=== PATIENT | female | born 1935 | race Caucasian/White ===

== ENCOUNTER 2019-02-03 08:25 | Inpatient (IN) ==
[2019-02-03] MEDS ORDERED: ZOFRAN IV ONE (08:59)
[2019-02-03] MEDS ORDERED: MORPHINE IV ONE (08:59)
[2019-02-03 09:12] LABS: BASO# 0.04 X1000 (0.0-0.2); BASO% 0.6 % (0.0-0.8); EOS# 0.07 X1000 (0.0-0.7); HEMATOCRIT 38.7 % (37.0-47.0); HEMOGLOBIN 13.1 g/dL (12.0-16.0); IMM GRAN# 0.02 X1000 (0.0-0.04); IMM GRAN% 0.3 % (0.0-0.5); LYMPH# 0.83 X1000 (1.2-3.4); LYMPH% 12.2 % (20.5-51.1); MCH 28.4 PG (27-31); MCHC 33.9 g/dL (33-37); MCV 83.9 FL (81-99); MONO# 0.73 X1000 (0.11-0.59); MONO% 10.7 % (1.7-9.3); MPV 11.6 FL (7.4-10.4); NEUT# 5.11 X1000 (1.4-6.5); NEUT% 75.2 % (42.2-75.2); PLT 224 X1000 (130-400); RBC 4.61 XMIL (4.2-5.4); RDW 14.1 % (11.5-14.5)
--- NOTE | 2019-02-03 09:14 | PROVIDER DOCUMENTATION ---
HPI-Abdominal Pain/GI Problem - General Chief Complaint: Abdominal Pain Stated Complaint: SOB,ABD PAIN Time Seen by Provider: 02/03/19 08:49 Source: patient, family Allergies/Adverse Reactions: Patient Allergies Allergy/AdvReac Type Severity Reaction Status Date / Time No Known Allergies Allergy Verified 02/03/19 09:02 Home Medications: Home Medication List Medication Instructions Recorded Confirmed Last Taken Type Chlorthalidone 25 mg PO DAILY 02/03/19 02/03/19 Unknown History Citalopram [Celexa] 10 mg PO DAILY 02/03/19 02/03/19 Unknown History Levothyroxine [Synthroid] 25 microgm PO DAILY 02/03/19 02/03/19 Unknown History Metformin E.r. [Glucophage Xr] 500 mg PO DAILY 02/03/19 02/03/19 Unknown History - History of Present Illness-ABD Nature of Presenting Problems: Presents to the with complaints of lower suprapubic abd pain that has been going on for about a week. She states that this has been getting progressively worse and has been causing SOB. She denies any dysuria, hematuria, fevers, chills or diarrhea. She states her last BM was this morning and she didnt have to strain hard and felt there was no constipation. She states this has never happened to her before. She has not tried anything at home. She tried to go to her PCP this morning but they were booked up and couldnt take her so she came here. Review of Systems - Adult - REVIEW OF SYSTEMS - ADULT Constitutional: reports: see HPI Eyes: reports: no symptoms reported Ears, Nose, Mouth & Throat: reports: no symptoms reported Cardiovascular: reports: no symptoms reported Respiratory: reports: no symptoms reported Gastrointestinal: reports: abdominal pain. denies: constipation, diarrhea, nausea, rectal bleeding, vomiting Genitourinary: reports: no symptoms reported Musculoskeletal: reports: no symptoms reported Integumentary: reports: no symptoms reported Neurological: reports: no symptoms reported Psychiatric: reports: no symptoms reported Endocrine: reports: no symptoms reported Hematologic/Lymphatic: reports: no symptoms reported Allergic/Immunologic: reports: no symptoms reported All Other Systems: Reviewed and Negative Past History - Adult - PAST MEDICAL HISTORY-ADULT Review of Records: reports: Old Records Reviewed Physical Exam-General - CONSTITUTIONAL General Appearance: alert, mild distress (uncomfortable appearing) - EYES Eyes: PERRL/EOMI - HEAD, EARS, NOSE, MOUTH & THROAT HENMT: normocephalic/atraumatic - NECK Neck: supple, normal inspection - RESPIRATORY Respiratory: chest non-tender, lungs clear, normal breath sounds, no respiratory distress, no accessory muscle use - CARDIOVASCULAR Cardiovascular: normal peripheral pulses, regular rate, rhythm, no murmur - GASTROINTESTINAL (ABDOMEN) Abdominal Exam: normal bowel sounds, soft, tenderness (lower abd pain) - MUSCULOSKELETAL Back Exam: normal inspection Extremity: non-tender, normal gait, normal inspection - SKIN Integumentary: normal color, warm/dry - NEUROLOGIC Neurologic: grossly normal - PSYCHIATRIC Psych/Mental Status: normal mood/affect, oriented x 3 Progress - PLAN OF CARE/RESULTS Progress/Plan/Lab Results: Vital Signs - 8 hr 02/03/19 08:30 Temperature 98.1 F Pulse Rate 71 Respiratory Rate 20 Blood Pressure 129/71 O2 Sat by Pulse Oximetry 98 Orders Category Date Time Status CHEST-PORTABLE [RAD] Stat Exams 02/03/19 08:[address] ABD/PELVIS W/IV CONT ONLY [CT] Stat Exams 02/03/19 08:57 Ordered CBC WITH ELECTRONIC DIFF [HEME] Stat Lab 02/03/19 09:02 Ordered COMPREHENSIVE METABOLIC PANEL [CHEM] Stat Lab 02/03/19 09:02 Ordered LIPASE [CHEM] Stat Lab 02/03/19 09:02 Ordered URINALYSIS W/POSS RFLX CULT [URINALYSIS] Stat Lab 02/03/19 08:57 Uncollected Morphine Med 02/03/19 08:59 Discontinued 4 mg IV NOW ONE Ondansetron [Zofran] Med 02/03/19 08:59 Discontinued 4 mg IV NOW ONE EKG [EKG] Stat Ther 02/03/19 08:38 Ordered Patient with concerning CT for mets and cancer. Discussed results with patient. She was very tearful and shocked. Offered administration manager services but explained that without biopsy nothing is known for sure and she needs further testing. Spoke to Dr Soto who stated that he would like to see patient in the ED prior to admitting as he felt that at this time admission is not necessary. Came to ED to see patient and feels like her primary cause for her abdominal pain is due to her diverticulitis and will treat her for this as well as try to obtain a biopsy. I feel diverticulitis is less likely the cause of her issue at this time as her WBC is normal, no blood in stool, afebrile, no diarrhea and no fevers. He accepted the patient for admission and will place all orders. Patient still pain free. Result Diagrams: 02/03/19 09:01 02/03/19 09:01 - EKG 1 Time of EKG reading by physician:: 08:37 EKG Read and Signed by:: Katie Barry EKG Interpretation (*Must complete 3 of following elements*): Abnormal Rate: 76 Rhythm: NSR [place]: normal QRS: normal ST Wave: non-specific ST changes - XRAY 1 XRAY Study: Chest (EXAM: CHEST-PORTABLE 02/03/2019 HISTORY: SOB TECHNIQUE: AP portable chest at 0917 COMMENT: There is an old fracture of the left humerus. The inspiration is less optimal than on 03/01/2017. There is some minimal atelectasis in the left costophrenic angle region. Otherwise lungs appear to be clear and unchanged since the previous study. The heart size and primary vascularity are within normal limits. IMPRESSION: Minimal left lower lobe atelectasis. Electronically signed by Reji Neri 02/03/2019 9:39 AM) - CT/MRI 1 CT Study: Abdomen (EXAM: CT ABD/PELVIS W/IV CONT ONLY 02/03/2019 HISTORY: lower abd pain x 1 week TECHNIQUE: This exam was performed using automated exposure control, adjustment of mA or kV according to patient size, and/or use of iterative reconstruction technique. COMMENT: There are no previous studies available for comparison. There is some dependent atelectasis in both lower lobes. There are calcifications in the abdominal aorta. The mesenteric and renal arteries are patent. There is dilatation of the biliary system in the left hepatic lobe and there are multiple low density and heterogeneously enhancing masses throughout the liver. There is what appears to be a cyst in the inferior portion of the right lobe. The common bile duct is somewhat distended measuring up to 8.9 mm. There has been cholecystectomy. The distal portion of the common duct is more normal in caliber measuring less than 5 mm. The pancreatic duct is slightly prominent measuring over 3 mm distally. There is a mass in the tail of the pancreas which is heterogeneous in appearance and abuts the hilus of the spleen, the aorta and encases the celiac artery. There is no evidence of abutment of the superior mesenteric artery although the splenic artery and vein are encased in the mass. This mass measures at least 5.4 cm in AP dimension. There are mesenteric masses as well with one on the left abutting a small bowel loop on image 63 measuring 13 mm in diameter and one in the central mesentery on image 90 measuring 2.2 cm in diameter. There are variceal collaterals seen anteriorly and around the stomach most likely as a result of obstruction of the splenic vein due to the mass. There is a moderate amount of stool in the colon. There is some fullness of the collecting systems particularly the right collecting system in the kidneys. There is a somewhat diminished area of enhancement in the mid anterior right kidney of uncertain significance. This is associated with some degree of perinephric fluid. Pelvis: There is free fluid in the cul-de-sac. There is mucosal thickening present in the sigmoid colon as well as multiple diverticula. The urinary bladder is not distended. There is a pessary in the vaginal vault. There is a right hip prosthesis and left hip nail which produces beam hardening artifact partially obscuring the lower pelvis. There are degenerative changes in the lumbar spine. IMPRESSION: 1. Mass in the tail of the pancreas with metastatic lesions in the liver. 2. Mesenteric masses as described above. 3. Varices. 4. Ascites, possibly malignant. 5. The possibility of primary or secondary malignancy in the sigmoid colon cannot be ex cluded. More likely there is a mild degree of sigmoid diverticulitis.) - CONSULTS/PCP/HOSPITALIST Notification #1 *Consult/PCP/Hospitalist*: Dr Soto Time Discussed: 11:15 Consult Disposition: Will see in ED (Discussed results. Does not see reason for admission, will see patient in the ED prior to accepting) Departure - Departure Date of Disposition Decision: 02/03/19 Time of Disposition Decision: 11:15 DIAGNOSIS: Mesenteric mass, Abdominal pain, Hypokalemia, Pancreatic mass, Ascites Disposition: ADMITTED INPATIENT 09 Certified Medical Emergency: Emergent Condition: Stable Referrals and Follow-Ups: Tamia Soto MD [Primary Care Provider] - - Critical Care Note This patient required my direct & personal management of CC.: No Attestation - Physician/ JOSE MANUEL Attestation Patient care was provided by Advanced Practice Provider:: No The physician spent face to face time with patient:: Yes Advanced Practice Provider documentation review:: Supervising physician onsite and consulted in the evaluation and care of this patient. The physician did have a face to face encounter with the patient.
--- NOTE | 2019-02-03 09:26 | EKG Report ---
Test Performed on : 02/03/2019 08:33:46 AM Test Reason : SOB Blood Pressure : / mmHG Vent. Rate : 076 BPM Atrial Rate : 076 BPM P-R Int : 098 ms QRS Dur : 070 ms QT Int : 384 ms P-R-T Axes : 065 073 066 degrees QTc Int : 432 ms Sinus rhythm. with short IL Low voltage QRS Nonspecific ST abnormality Abnormal ECG When compared with ECG of 17-SEP-2013 12:22, premature atrial complexes. are no longer present Nonspecific T wave abnormality now evident in Lateral leads Unconfirmed Result
[2019-02-03 09:31] LABS: AGAP 21; ALB/GLOB RATIO 1.1; ALBUMIN 3.9 g/dL (3.5-5.0); ALKALINE PHOSPHATASE 182 U/L (32-104); BUN 16 mg/dL (8-22); CALCIUM 9.5 mg/dL (8.8-10.2); CHLORIDE 91 mmol/L (98-107); COSMO 270; CREATININE 0.8 mg/dL (0.5-0.9); ESTIMATED GFR > 60; GLUCOSE 135 mg/dL (70-104); GOT 33 U/L (10-30); GPT 25 U/L (10-36); LIPASE 93 U/L (13-60); POTASSIUM 3.1 mmol/L (3.5-5.1); SODIUM 133 mmol/L (136-145); TCO2 21 mmol/L (25-35); TOTAL BILIRUBIN 1.05 mg/dL (0.20-1.00); TOTAL PROTEIN 7.5 g/dL (6.3-8.3)
--- NOTE | 2019-02-03 09:41 | Diag Imaging Result Doc PS360 ---
EXAM: CHEST-PORTABLE 02/03/2019 HISTORY: SOB TECHNIQUE: AP portable chest at 0917 COMMENT: There is an old fracture of the left humerus. The inspiration is less optimal than on 03/01/2017. There is some minimal atelectasis in the left costophrenic angle region. Otherwise lungs appear to be clear and unchanged since the previous study. The heart size and primary vascularity are within normal limits. IMPRESSION: Minimal left lower lobe atelectasis. Electronically signed by Reji Neri 02/03/2019 9:39 AM
[2019-02-03] MEDS ORDERED: KLOR-CON PO ONE (09:59)
[2019-02-03] MEDS ORDERED: NS 1,000 ML IV ONE (10:13)
--- NOTE | 2019-02-03 10:20 | Diag Imaging Result Doc PS360 ---
EXAM: CT ABD/PELVIS W/IV CONT ONLY 02/03/2019 HISTORY: lower abd pain x 1 week TECHNIQUE: This exam was performed using automated exposure control, adjustment of mA or kV according to patient size, and/or use of iterative reconstruction technique. COMMENT: There are no previous studies available for comparison. There is some dependent atelectasis in both lower lobes. There are calcifications in the abdominal aorta. The mesenteric and renal arteries are patent. There is dilatation of the biliary system in the left hepatic lobe and there are multiple low density and heterogeneously enhancing masses throughout the liver. There is what appears to be a cyst in the inferior portion of the right lobe. The common bile duct is somewhat distended measuring up to 8.9 mm. There has been cholecystectomy. The distal portion of the common duct is more normal in caliber measuring less than 5 mm. The pancreatic duct is slightly prominent measuring over 3 mm distally. There is a mass in the tail of the pancreas which is heterogeneous in appearance and abuts the hilus of the spleen, the aorta and encases the celiac artery. There is no evidence of abutment of the superior mesenteric artery although the splenic artery and vein are encased in the mass. This mass measures at least 5.4 cm in AP dimension. There are mesenteric masses as well with one on the left abutting a small bowel loop on image 63 measuring 13 mm in diameter and one in the central mesentery on image 90 measuring 2.2 cm in diameter. There are variceal collaterals seen anteriorly and around the stomach most likely as a result of obstruction of the splenic vein due to the mass. There is a moderate amount of stool in the colon. There is some fullness of the collecting systems particularly the right collecting system in the kidneys. There is a somewhat diminished area of enhancement in the mid anterior right kidney of uncertain significance. This is associated with some degree of perinephric fluid. Pelvis: There is free fluid in the cul-de-sac. There is mucosal thickening present in the sigmoid colon as well as multiple diverticula. The urinary bladder is not distended. There is a pessary in the vaginal vault. There is a right hip prosthesis and left hip nail which produces beam hardening artifact partially obscuring the lower pelvis. There are degenerative changes in the lumbar spine. IMPRESSION: 1. Mass in the tail of the pancreas with metastatic lesions in the liver. 2. Mesenteric masses as described above. 3. Varices. 4. Ascites, possibly malignant. 5. The possibility of primary or secondary malignancy in the sigmoid colon cannot be excluded. More likely there is a mild degree of sigmoid diverticulitis. Electronically signed by Reji Neri 02/03/2019 10:17 AM
[2019-02-03] MEDS ORDERED: TYLENOL PO PRN (12:08)
[2019-02-03] MEDS ORDERED: SODIUM CHLORIDE 0.9% INJ PRN (12:08)
[2019-02-03] MEDS ORDERED: PHENERGAN IV PRN (12:08)
[2019-02-03 12:11] LABS: INR 1.11; PROTIME 14.5 Seconds (11.0-16.0)
[2019-02-03 12:12] LABS: PTT 31.4 Seconds (22.3-41.8)
[2019-02-03] MEDS: FLAGYL 500 MG/NS 500 MG/100 ML IVPB IV SCH ×2 (12:43→18:41)
[2019-02-03] MEDS ORDERED: LEVAQUIN 500 MG/D5W 500 MG/100 ML IVPB IV SCH (13:00)
--- NOTE | 2019-02-03 16:26 | Diag Imaging Result Doc PS360 ---
EXAM: CT GUIDED BX LIVER 02/03/2019 HISTORY: mass at tail of pancreas with poss. mets to liver TECHNIQUE: CT-guided biopsy of the left hepatic lobe COMMENT: The risks and benefits of the procedure including the possibility of bleeding, infection, reaction to lidocaine were discussed with the patient and she agreed to the procedure. Following sterile preparation the skin anteriorly and administration 1% lidocaine to the skin and deeper soft tissues, an 18-gauge coaxial needle was employed to obtain three cores from the mass in the left hepatic lobe. There are no immediate complications and the patient tolerated the procedure well. IMPRESSION: Successful CT-guided biopsy of the liver. Electronically signed by Reji Neri 02/03/2019 4:24 PM
[2019-02-03 20:40] LABS: URINE SOURCE CLEAN CATCH
[2019-02-03 20:47] LABS: BILIRUBIN URINE NEGATIVE (NEGATIVE); BLOOD URINE MODERATE (NEGATIVE); COLOR YELLOW; GLUCOSE URINE NEGATIVE (NEGATIVE); KETONE URINE TRACE mg/dL (NEGATIVE); LEUKOCYTES URINE LARGE (NEGATIVE); NITRITE URINE NEGATIVE (NEGATIVE); PROTEIN URINE TRACE mg/dL (NEGATIVE); SP GRAVITY URINE 1.041; TURBIDITY URINE HAZY (CLEAR); UROBILINOGEN URINE NORMAL (NORMAL)
[2019-02-03 20:49] LABS: UR EPITHELIAL CELLS <10 /HPF (<10); URINE BACTERIA 1+ /HPF; URINE WBC TNTC /HPF (<10)
[2019-02-04] MEDS: FLAGYL 500 MG/NS 500 MG/100 ML IVPB IV SCH ×3 (00:40→12:07)
[2019-02-04] MEDS ORDERED: SYNTHROID PO SCH (09:00)
[2019-02-04] MEDS ORDERED: CELEXA PO SCH (09:00)
[2019-02-04 09:20] LABS: AGAP 14; BUN 11 mg/dL (8-22); CALCIUM 8.7 mg/dL (8.8-10.2); CHLORIDE 95 mmol/L (98-107); COSMO 266; CREATININE 0.7 mg/dL (0.5-0.9); ESTIMATED GFR > 60; GLUCOSE 127 mg/dL (70-104); POTASSIUM 3.6 mmol/L (3.5-5.1); SODIUM 132 mmol/L (136-145); TCO2 23 mmol/L (25-35)
[2019-02-04 11:20] VITALS: BP 104/64
[2019-02-04] MEDS ORDERED: PHENERGAN PO PRN (12:26)
[2019-02-04] MEDS ORDERED: FLAGYL PO SCH (13:00)
--- NOTE | 2019-02-04 13:40 | HISTORY AND PHYSICAL ---
CHIEF COMPLAINT: Abdominal pain. HISTORY OF PRESENT ILLNESS: Mrs. Marce Tripathi is an 83-year-old, lady with a history of essential hypertension, primary hypothyroidism, depression, and type 2 noninsulin-dependent diabetes mellitus, who is well known to me. She presented to clinic complaining of a 1-week history of crampy left lower quadrant abdominal pain in association with nausea, vomiting, and diarrhea. She denied any fever or chills. A CT scan of the abdomen and pelvis demonstrated sigmoid diverticulitis. The CT scan of the abdomen and pelvis also demonstrated a mass in the pancreatic tail with liver metastases and mesenteric metastases. Family reported that she had not had any chronic nausea, vomiting, or significant weight loss. Her appetite had been good. She had not been having any unexplained bone pain. PAST MEDICAL HISTORY: Essential hypertension, primary hypothyroidism, type 2 noninsulin-dependent diabetes mellitus, depression. PAST SURGICAL HISTORY: Bilateral cataracts, hysterectomy, cholecystectomy, left hip replacement. ALLERGIES: No known drug allergies. FAMILY HISTORY: Noncontributory. SOCIAL HISTORY: She denies the use of tobacco, alcohol, or illicit drugs. REVIEW OF SYSTEMS: Constitutional: She denies any recent weight gain or weight loss. HEENT: She wears glasses. CV: No chest pain, palpitations, or anginal equivalents. Pulmonary: No shortness of breath, PND, or orthopnea. GI: No reflux, dysphagia, melena, hematochezia, change in bowel habits, or rectal bleeding. Endocrine: No polyuria, no polydipsia. No cold or heat intolerance. Skin: No easy bruisability. : No leakage of urine with coughing or laughing. Neurologic: No migraines or seizures. PHYSICAL EXAMINATION: General: This is a well-developed, well-nourished, 83-year-old, lady in no apparent distress. Vital Signs: She is afebrile, pulse 81, respirations 20, BP 129/71. HEENT: Fundi with arteriolar wall thickening. Pupils equal, round, reactive to light. Extraocular movements intact. Neck: Supple. No masses, JVD, or bruits. CV: Regular rate and rhythm. Lungs: Clear. Abdomen: Marked left lower quadrant tenderness to deep palpation. No rebound or guarding. She has hypoactive bowel sounds. Extremities: Without edema. Skin: No palpable purpura. Breasts/Gynecological/Rectal: Deferred. Neurologic: Nonfocal. ASSESSMENT AND PLAN: 1. Acute diverticulitis. I am going to admit her to [facility]. I will rehydrate her with normal saline, and begin intravenous antibiotics, including Levaquin and Flagyl pending cultures. We will advance her diet as tolerated. 2. Pancreatic mass with liver metastases. I have spoken to Dr. Neri. Her PTT and PT were within normal limits. I will check baseline tumor markers, including a CEA and CA19-9. I spoke to Dr. Neri, who will proceed with a CT-guided biopsy of the liver today. 3. Type 2 noninsulin-dependent diabetes mellitus. We will place her on pattern sugars, Humulin R sliding scale at her regular home dosage, and we will hold her metformin after receiving contrast. Given clinical presentation and comorbid conditions, I believe admission to the hospital is necessary. I do anticipate that she will be in the hospital for at least 2 midnights, and I will therefore place her in inpatient status. cc: Doris Soto MD
--- NOTE | 2019-02-04 13:46 | DISCHARGE SUMMARY ---
ADMISSION DATE: 02/03/2019 DISCHARGE DATE: 02/04/2019 CHIEF COMPLAINT: Abdominal pain. HISTORY OF PRESENT ILLNESS: Ms. Mariposa Tripathi is an 83-year-old lady with history of depression, primary hypothyroidism, essential hypertension and type 2 twl-yiaxcml-odywrkrfe diabetes mellitus who is well known to me. She presented to the ER complaining of progressive abdominal discomfort and abdominal distention in association with nausea, vomiting and diarrhea. She had particular abdominal tenderness in the left lower quadrant. A CT scan demonstrated sigmoid diverticulitis. She denied any fever, chills, nausea or vomiting. CT scan of the abdomen and pelvis also demonstrated a mass in the tail of the pancreas with metastatic lesions in the liver as well as mesenteric masses. A CEA was 174. A CA-19-9 is greater than 84,000. A CT- guided liver biopsy was performed and pathology is pending at this time. HOSPITAL COURSE: She was started on a clear liquid diet and she was admitted to the hospital where she was cautiously rehydrated with normal saline. We began broad-spectrum antibiotics including Levaquin and Flagyl. Her abdominal pain improved significantly. The nausea resolved with fluids and Phenergan. She was transitioned to oral Flagyl. We advanced her diet to a GI soft diet which she was tolerating without nausea, vomiting, or abdominal pain. We felt that she was stable for discharge. She will complete an additional 5 day course of Flagyl 250 mg t.i.d. as an outpatient. Her tumor markers are markedly elevated. I suspect that she has stage IV pancreatic cancer. We are awaiting pathology results to confirm that diagnosis. I will see her back in the office next week and we will make appropriate referrals to Oncology to explore treatment options. cc: Doris Soto MD
--- NOTE | 2019-02-04 16:07 | DISCHARGE SUMMARY ---
ADMISSION DATE: 02/03/2019 DISCHARGE DATE: 02/04/2019 DISCHARGE DIAGNOSES: 1. Acute diverticulitis. 2. 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 3. Essential hypertension. 4. Primary hypothyroidism. 5. Depression. 6. Type 2 sti-rfocokl-akuwetxtj diabetes mellitus. DISCHARGE PHYSICAL EXAM: This is a well-developed, well-nourished 83-year-old lady in no apparent distress. She is afebrile. Vital signs are stable. CV: Regular rate and rhythm. Lungs: Clear. Abdomen: Soft, nontender with active bowel sounds. DISCHARGE INSTRUCTIONS: 1. Return to clinic in 1 week to see me Dr. James Soto. 2. Activity as tolerated. 3. GI soft diet. 4. Medications. Celexa 10 mg daily, Flagyl 250 mg t.i.d. for 5 days, levothyroxine 25 mcg daily, Phenergan 25 mg q.6 hours p.r.n. nausea, vomiting, metformin 500 mg daily, chlorthalidone 25 mg daily. Mrs. Tripathi was admitted to [facility] with acute diverticulitis. She was started on a clear liquid diet and was rehydrated with normal saline. We began broad-spectrum antibiotics including Levaquin and Flagyl. Her abdominal pain improved significantly. She had no further nausea, vomiting, or worsening abdominal pain. She was advanced to a GI soft diet which she was able to tolerate. She was transitioned to oral antibiotics and will complete a 5 day course of Flagyl 250 mg t.i.d. as an outpatient. I did remind her not to drink any alcoholic beverages while taking Flagyl. CT scan demonstrated an incidental finding of a pancreatic mass with metastases to the liver and mesentery. A CT-guided biopsy of the liver nodules was performed by Dr. Neri. Pathology is pending. Tumor markers including a CEA of 174 and a CA19-9 of greater than 84,000 were wildly abnormal. We have made arrangements for her to see me in the office in 1 week to review pathology results and explore treatment options. cc: Doris Soto MD
== END 2019-02-04 13:25 | disposition home or self-care (01) | DRG 392 ==
LOC: ED 08:25 → EDIPHOLD 10:50 → 4N 13:56
PROVIDERS: ADMIT Internal Medicine; ATTEND Internal Medicine